=== PATIENT | female | born 1990 | race Caucasian/White ===

== ENCOUNTER 2021-06-24 11:02 | Outpatient (CLI) | payer OTHER, SELFPAY ==
--- NOTE | ~2021-06-24 | XR_ITS ---
EXAMINATION: XR heel LT min 2V DATE: 06/24/2021 11:21 INDICATION: Left heel pain. TECHNIQUE: 2 views of left calcaneus were obtained. COMPARISON: None. FINDINGS: Bone alignment is normal. No fracture. There is mild osteoarthritis of talonavicular joint. IMPRESSION: 1. No fracture. Reviewed, dictated and finalized at location A. IMPRESSION: 1. No fracture.
--- NOTE | ~2021-06-24 | XR_ITS ---
EXAMINATION: XR ankle LT 2V DATE: 06/24/2021 11:21 INDICATION: Left ankle pain TECHNIQUE: Two views of the left ankle were obtained. COMPARISON: None. FINDINGS: There is no fracture, dislocation, or subluxation. The bones, soft tissues, and joint space s are normal. IMPRESSION: 1. No acute osseous abnormality. Reviewed, dictated and finalized at location A.
== END 2021-06-24 11:03 | disposition home or self-care (01) ==
LOC: CHSIMG 11:05
PROVIDERS: PCP Family Medicine; Visit Provider Nurse Practitioner Family
DX: M79.672 Pain in left foot (principal)
CPT/HCPCS: 73600; 73650

== ENCOUNTER 2021-12-27 07:30 | Outpatient (CLI) | payer OTHER, SELFPAY ==
--- NOTE | ~2021-12-27 | US_ITS ---
EXAMINATION: US pelvic complete w TV DATE: 12/27/2021 08:22 INDICATION: Amenorrhea Comparison:No prior studies for comparison. TECHNIQUE: Multiple transabdominal and endovaginal sonographic images of the pelvis performed. FINDINGS: The uterus measures 7.6 x 4.5 x 3.6 cm. The endometrial complex measures 12. There are uter ine fibroids measuring 2.6 x 2.4 x 2.2 cm at the fundus and 2.7 0.9 x 2.4 cm anterior uterine body. The right ovary measures 3.8 x 4.2 x 2 cm and the left ovary measures 3.1 x 3.1 x 1.9 cm. There are small follicles in each ovary. Normal doppler signal in both ovaries. There is trace free fluid in the pelvis. There are no abnormal masses seen on either side. IMPRESSION: 1. Uterine fibroids, largest measuring up to 2.7 cm. 2: Endometrial thickening measuring 12 mm. Reviewed, dictated and finalized at location A.
== END 2021-12-27 07:31 | disposition home or self-care (01) ==
LOC: CHSIMG 07:31
PROVIDERS: PCP Family Medicine; Visit Provider Nurse Practitioner Family
DX: N91.2 Amenorrhea, unspecified (principal)
CPT/HCPCS: 76830; 76856

== ENCOUNTER 2022-06-22 12:54 | Emergency (ER) | payer OTHER, SELFPAY ==
[2022-06-22 12:54] VITALS: BP 130/79; PULSE 110; RESP 16; TEMP 36.9; O2SAT 99
--- NOTE | 2022-06-22 13:10 | ED.ANIMALBIT ---
HPI - Animal Bite General Chief Complaint: Animal Bite Stated Complaint: cat bite Time Seen by Provider: 06/22/22 13:05 Source: patient Mode of arrival: ambulatory Limitations: no limitations History of Present Illness HPI narrative: This is a 32-year-old female that sustained cat bite and puncture wounds from the CT on her left hand there is a 3 distinct puncture wounds with currently no drainage there is some mild swelling and erythema with no shortness of breath no fever chills no chest pain no drainage from the wound site. currently no bleeding. complaint: animal bite Onset (ago): hour(s) Animal: cat Description of animal: household pet Mechanism: bite and scratch Related Data Allergies Allergy/AdvReac Type Severity Reaction Status Date / Time amoxicillin Allergy Intermediate unknown Verified 06/22/22 13:03 Review of Systems Review of Systems: All systems reviewed & are unremarkable except as noted in HPI and below PMFSH Past Medical History Medical History Chronic GERD (02/19/17) Cigarette smoker (06/26/16) Fibroid uterus Generalized anxiety disorder (03/26/15) Hair loss Headache Insomnia (08/27/15) Left ankle sprain Mgrn wo aura wo ntrc mgr (07/14/14) Social History Social History Smoking packs per day: 1 Smoking cigarettes per day: 20.0 Years smoked: 16 Smoking pack-years: 16.00 Smoking status: Current every day smoker Tobacco type: cigarettes Alcohol intake: current Alcohol use details: 2 times weekly Substance use: current Substance use type: marijuana Lack of Transportation: No Lack of Food: Never True Current Housing: I Have Housing Concerned About Future Housing: No Difficulty Paying Gas/Electric Bills: No Difficulty Paying for Meds: No Currently Unemployed: No Education: Decline to Answer Difficulty w/ Childcare or Family Care: No Living arrangements: with family Additional living arrangements comments: Occupation/Education: unemployed Gender identity (if verbalized by the patient): Female Spiritual care concerns: No Exam Const: General: healthy appearing Nutritional Appearance: well nourished Limitations: no limitations HENMT: Head: normal to inspection Eyes: Conjunctivae: conjunctivae normal Neck: Neck: normal visual inspection Chest: Chest palpation & inspection: normal inspection of the chest Resp: Effort & Inspection: normal respiratory effort Cardio: Rate: regular rate Rhythm: regular rhythm GI: GI Palp: Yes Soft to palpation Skin: Other: Puncture wounds 3 distinct areas on the left hand with no drainage some mild swelling and mild loss Neuro: General: patient oriented x3 Speech: normal speech Gait exam (Neuro): Normal gait present Extrem: General: normal to inspection Psych: Mental Status: mental status grossly normal Affect: normal affect Course Course Emergency Course: area was cleaned and irrigated currently no bleeding from the puncture wounds there is some mild redness and mild swelling, updated patient with her tetanus and antibiotics were sent to her local pharmacy. Vital Signs Vital signs: Vital Signs Temperature 36.9 C 06/22/22 12:54 Pulse Rate 110 H 06/22/22 12:54 Respiratory Rate 16 06/22/22 12:54 Blood Pressure 130/79 06/22/22 12:54 Pulse Oximetry 99 06/22/22 12:54 Oxygen Delivery Room Air 06/22/22 12:54 Temperature 36.9 C 06/22/22 12:54 Pulse Rate 110 H 06/22/22 12:54 Respiratory Rate 16 06/22/22 12:54 Blood Pressure 130/79 06/22/22 12:54 Pulse Oximetry 99 06/22/22 12:54 Oxygen Delivery Room Air 06/22/22 12:54 Critical Care Time Critical Care Time Critical Care Time: No Discharge Plan Discharge Clinical Impression: Bite by animal Patient Disposition: Home, Self-Care Condition: Stable Instructions: Antibiot
[2022-06-22] MEDS: TETANUS,DIPHTHERIA,AC PERTUSSIS ADULT 0.5 ML (ADACEL) IM (13:19)
--- NOTE | 2022-06-22 13:46 | PC.NURSE ---
animal bite report form faxed to [facility] animal control
== END 2022-06-22 13:25 | disposition home or self-care (01) ==
LOC: CHSED 13:18
PROVIDERS: Emergency Provider Emergency Medicine; PCP Nurse Practitioner Family
DX: S61.452A Open bite of left hand, initial encounter (principal); F17.210 Nicotine dependence, cigarettes, uncomplicated; Z23 Encounter for immunization; W55.01XA Bitten by cat, initial encounter
CPT/HCPCS: 90471; 90715; 99283

== ENCOUNTER 2022-08-10 13:28 | Outpatient (CLI) | payer OTHER, SELFPAY ==
--- NOTE | ~2022-08-10 | US_ITS ---
EXAMINATION: US pelvic complete w TV DATE: 08/10/2022 14:01 INDICATION: Uterine fibroids TECHNIQUE: Multiple transabdominal and endovaginal sonographic images of the pelvis were obtained. COMPARISON: 12/27/2021 FINDINGS: The uterus measures 7.9 x 4.3 x 3.2 cm. There is a 2.9 x 2.8 x 2.7 by cm fibroid of the ant erior uterine body near the fundus. There is a 2.9 x 2.0 x 2.8 cm fibroid of the anterior uterine bod y. Both are stable to slightly increased in size accounting for differences in technique. The endomet rial complex measures 5 mm. The right ovary measures 3.8 x 2.3 x 3.2 cm. The left ovary measures 3.2 x 2.7 x 2.2 cm. There is normal vascular flow in the ovaries. There is no free fluid in the pelvis. IMPRESSION: 1. Two uterine fibroids, stable to slightly increased in size. Reviewed, dictated and finalized at location L.
== END 2022-08-10 13:29 | disposition home or self-care (01) ==
LOC: CHSIMG 13:29
PROVIDERS: PCP Nurse Practitioner Family; Visit Provider Nurse Practitioner Family
DX: D25.9 Leiomyoma of uterus, unspecified (principal)
CPT/HCPCS: 76830; 76856

== ENCOUNTER 2023-01-02 07:28 | Outpatient (CLI) | payer OTHER, SELFPAY ==
--- NOTE | ~2023-01-02 | US_ITS ---
Abdominal Sonogram: Real-time sonographic imaging of the abdomen was performed. Clinical History: Abdominal pain Findings: The liver appears normal with no evidence of mass lesion or bile duct dilatation. Main por dami vein demonstrates normal direction of flow. The spleen is normal in size without evidence of foca l lesion. The gallbladder is well distended, and appears normal with no evidence of gallstone or wal l thickening. The common bile duct measures 3 mm. The visualized pancreas, aorta, and IVC are unrema rkable. The right kidney measures 10.4 cm in length and the left kidney measures 10.9 cm. There is no hydronephrosis or renal calculus. Impression: Unremarkable abdominal ultrasound. Reviewed, dictated and finalized at location . Impression: Unremarkable abdominal ultrasound.
[2023-01-02 07:46] LABS: Basophils Absolute Auto 0.03 K/mm3 (0.00-0.10); Basophils Percent Auto 0.5 % (0.0-1.0); Eosinophils Absolute Auto 0.11 K/mm3 (0.02-0.50); Eosinophils Percent Auto 1.7 % (1.0-6.0); Hematocrit 43.2 % (35.0-49.0); Hemoglobin 14.4 g/dL (12.0-15.0); Immature Granulocyte Absolute 0.02 K/mm3 (0.00-0.00); Immature Granulocyte Percent A 0.3 % (0.0-0.0); Lymphocytes Absolute Auto 2.43 K/mm3 (1.10-4.50); Lymphocytes Percent Auto 37.5 % (18.0-42.0); Mean Corpuscular HGB Conc 33.3 g/dL (32.0-36.0); Mean Corpuscular Hemoglobin 32.5 pg (27.0-31.0); Mean Corpuscular Volume 97.5 fL (78.0-102.0); Mean Platelet Volume 11.4 fl (9.2-11.8); Monocytes Absolute Auto 0.39 K/mm3 (0.10-0.90); Neutrophils Absolute Auto 3.5 K/mm3 (1.7-7.2); Platelet Count Result 176 K/mm3 (150-420); Red Blood Count 4.43 M/mm3 (4.20-5.40); Red Cell Distribution Width 12.2 % (11.6-14.4); White Blood Count 6.5 K/mm3 (4.8-10.8)
[2023-01-02 08:37] LABS: Hemoglobin A1C 4.8 % (<5.7)
[2023-01-02 08:44] LABS: Erythrocyte Sedimentation Rate 3 mm/hr (0-15)
[2023-01-02 08:53] LABS: Alanine Aminotransferase 19 U/L (14-59); Albumin Level 4.2 g/dL (3.4-5.0); Alkaline Phosphatase 66 U/L (46-116); Amylase 44 U/L (25-115); Anion Gap 13 mmol/L (8-16); Aspartate Amino Transferase < 10 U/L (15-37); Bilirubin,Total 0.6 mg/dL (0.00-1.00); Blood Urea Nitrogen 9 mg/dL (7-18); Calcium 9.3 mg/dL (8.5-10.1); Carbon Dioxide 23 mmol/L (21-32); Chloride 109 mmol/L (98-108); Cholesterol 131 mg/dL (0-200); Estimated Glomerular Filt Rate > 60; Glucose 94 mg/dL (70-99); HDL Direct 73 mg/dL (40-60); LDL Cholesterol Calculated 46 mg/dL (<130); Lipase 30 U/L (16-77); Osmolality Calculated 298 mOsm/kg (285-295); Potassium 4.1 mmol/L (3.5-5.1); Sodium 145 mmol/L (136-145); Thyroid Stimulating Hormone 0.76 uIU/mL (0.36-3.74); Total Protein 6.8 g/dL (6.4-8.2); Triglycerides 60 mg/dL (0-150)
== END 2023-01-02 07:29 | disposition home or self-care (01) ==
LOC: CHSIMG 07:31
PROVIDERS: PCP Nurse Practitioner Family
DX: M25.50 Pain in unspecified joint (principal); R10.9 Unspecified abdominal pain; Z79.899 Other long term (current) drug therapy
CPT/HCPCS: 36415; 76700; 80053; 80061; 82150; 83036; 83690; 84443; 85025; 85652